=== PATIENT | male | born 1975 | race Caucasian/White ===

== ENCOUNTER 2023-10-11 13:01 | Observation (INO) ==
[2023-10-11 13:12] VITALS: BMI 23.6
--- NOTE | 2023-10-11 13:20 | DR.GENAD ---
HPI Time Seen Time Seen by Provider: 10/11/23 13:19 PCP Primary Care Physician: none Complaint/Symptoms Chief Complaint Doctors Comments: 48-year-old male brought in for evaluation. Has history of right inguinal hernia over the past year. Has had increasing pain and swelling of the area over the past several days. Denies any trauma. Usually the hernia goes down with laying down, has persisted to be swollen over the last several days. Pain is sharp, worse with movement and palpation. Makes it better. Denies associated nausea, vomiting, diarrhea. Moved his bowels recently no trouble. Denies any fever or chills. Chief Complaint:: Pt. states that he has had a right inguinal hernia for about a year. But this past week he has had increased pain and swelling to his right groin extending into his scrotom. He said that "it usually goes down" when he lays down but it hasn't "gone down this week". Pt. reports his last bowel movement was yesterday. Nurses notes reviewed Nurses Notes Review: Yes Source History Provided: Patient Mode of Arrival Mode of Arrival: Ambulatory Timing Onset of Chief Complaint: 10/08/23 PMH PMH Past Medical History: Yes Past Medical History: GERD Past Medical History Comment: hep C, inguinal hernia Past Surgical History: No Family History History of Family Medical Conditions: No Social History Does patient currently use any type of tobacco product: Yes Have you used tobacco products in the last 12 months: Yes Type of Tobacco Use: Cigarettes Alcohol Use: None Do you use any recreational Drugs:: No Lives With: Other Lives Where: [facility] screening In the last 2 months have you had wt loss of >10#?: NO Have you had fever, night sweats or hemotysis?: No Have you traveled outside the country in the last 6 months?: No Isolation: Standard ROS Review of Systems Constitutional: No Symptoms Reported Eyes: No Symptoms Reported ENTM: No Symptoms Reported Respiratoy: No Symptoms Reported Cardiovascular: No Symptoms Reported Gastrointestinal/Abdominal: See HPI Genitourinary: No Symptoms Reported Neurological: No Symptoms Reported Musculoskeletal: No Symptoms Reported Integumentary: No Symptoms Reported Hematologic/Lymphatic: No Symptoms Reported All Other Systems: Reviewed and Negative PE Vital Signs Vitals: Vital Signs Temperature 98.1 F Pulse Rate 65 Pulse Rate 60 Respiratory Rate 20 Respiratory Rate 17 Respiratory Rate 18 Blood Pressure 123/82 Blood Pressure 130/83 O2 Sat by Pulse Oximetry 99 O2 Sat by Pulse Oximetry 99 General General Appearance: Alert and In No Apparent Distress Eyes Eye exam: PERRL and EOMI ENT ENT Exam: Mucous Membranes Moist Neck Neck Exam: Normal Inspection Respiratory Respiratory Exam: Normal Lung Sounds Bilat; negative Accessory Muscle Use or Respiratory Distress Cardiovascular Cardiovascular Exam: Regular Rate, Normal Rhythm and Normal Heart Sounds Abdominal Exam Abdominal Exam: Soft and Tenderness (R inguinal region, with moderate hernia present. Unable to reduce easily. ) Neurologic Neurological Exam: Alert, Oriented X3 and CN II-XII Intact; negative Motor Sensory Deficit Skin Skin Exam: Warm and Dry COURSE Treatment Treatment: 48-year-old inmate presents with worsening hernia over the past several days. Baseline CT obtained, does have significant mount of intestines in his right inguinal hernia. Dr. García seeing the patient right now. Has not eaten since 5 AM. Anticipate going to OR. Labs, EKG, CXR obtained. given IV Ancef per Dr Lindquist's request. EKG and chest x-ray normal. To OR now. [facility]OR Labs Reviewed Laboratory Results Reviewed?: Yes 10/11/23 13:57 10/11/23 13:57 Laboratory: WBC 7.0 X10^3/uL (3.6-10.0) 10/11/23 13:57 RBC 4.43 X10^6/uL (4.7-6.0) L 10/11/23 13:57 Hgb 14.1 g/dL (13.5-18.0) 10/11/23 13:57 Hct 41.7 % (42.0-54.0) L 10/11/23 13:57 MCV 94.3 fL (80.0-100.0) 10/11/23 13:57 MCH 31.9 pg (27.0-34.0) 10/11/23 13:57 MCHC 33.9 g/dL (33.0-35.0) 10/11/23 13:57 RDW 14.0 % (11.6-16.5) 10/11/23 13:57 Plt Count 238 X10^3/uL (150.0-450.0) 10/11/23 13:57 MPV 8.3 fL (7.4-11.0) 10/11/23 13:57 Neut % (Auto) 58.1 % (42.0-75.0) 10/11/23 13:57 Lymph % (Auto) 27.5 % (21.0-51.0) 10/11/23 13:57 Hardeman % (Auto) 9.4 % (0.0-13.0) 10/11/23 13:57 Eos % (Auto) 4.6 % (0.9-2.9) H 10/11/23 13:57 Baso % (Auto) 0.4 % (0.2-1.0) 10/11/23 13:57 Neut # (Auto) 4.1 x10^3/uL (2.2-4.8) 10/11/23 13:57 Lymph # (Auto) 1.9 X10^3/uL (1.3-2.9) 10/11/23 13:57 Hardeman # (Auto) 0.7 x10^3/uL (0.3-0.8) 10/11/23 13:57 Eos # (Auto) 0.3 x10^3/uL (0.0-0.2) H 10/11/23 13:57 Baso # (Auto) 0.0 X10^3/uL (0.0-0.1) 10/11/23 13:57 Absolute Nucleated RBC 0.1 /100WBC 10/11/23 13:57 PT 13.6 SECONDS (11.8-14.3) 10/11/23 13:57 INR Target Range - 10/11/23 13:57 INR 1.06 (0.8-1.3) 10/11/23 13:57 APTT 31.3 SECONDS (22.9-36.5) 10/11/23 13:57 PTT Comment - 10/11/23 13:57 Sodium 140 mmol/L (136-145) 10/11/23 13:57 Corrected Sodium TNP 10/11/23 13:57 Potassium 4.0 mmol/L (3.5-5.1) 10/11/23 13:57 Chloride 103 mmol/L (98-107) 10/11/23 13:57 Carbon Dioxide 31.3 mmol/L (21-32) 10/11/23 13:57 BUN 7 mg/dL (7-18) 10/11/23 13:57 Creatinine 0.80 mg/dL (0.70-1.30) 10/11/23 13:57 Est GFR (MDRD) Af Amer > 60 (>60) 10/11/23 13:57 Est GFR (MDRD) Non-Af > 60 (>60) 10/11/23 13:57 Glucose 89 mg/dL (65-99) 10/11/23 13:57 Calcium 8.8 mg/dL (8.5-10.1) 10/11/23 13:57 Corrected Calcium TNP 10/11/23 13:57 Total Bilirubin 0.50 mg/dL (0.2-1.0) 10/11/23 13:57 AST 34 Units/L (15-37) 10/11/23 13:57 ALT 41 Units/L (12-78) 10/11/23 13:57 Alkaline Phosphatase 61 Units/L (46-116) 10/11/23 13:57 Total Protein 7.1 g/dL (6.4-8.2) 10/11/23 13:57 Albumin 3.4 g/dL (3.4-5.0) 10/11/23 13:57 Globulin 3.7 g/dL (2.5-4.5) 10/11/23 13:57 Albumin/Globulin Ratio 0.9 Ratio (1.1-2.1) L 10/11/23 13:57 Lipase 29 Units/L (16-77) 10/11/23 13:57 Labs acceptable. XRAY XRAY Interpreted by: Both X-ray Results: EXAM: ABDOMEN/PELVIS W/O CON HISTORY: Right inguinal hernia TECHNIQUE: Axial noncontrast images with coronal and sagittal reformats. Dose reduction procedures were used with mA/kv adjusted for body size. This examination is l imited due to the lack of intravenous and oral contrast. The examination was performed in this manner at the sole discretion of the ordering caregiver. COMPARISON: None FINDINGS: Lung bases are clear. The liver, spleen, adrenal glands, and pancreas are within normal limits to the limitations of an unenhanced examination. No opaque stones are present within the gallbladder. Kidneys are unobstructed and without stones. No ureteral calculi are identified. The appendix is normal. Abdominal aorta is normal in caliber. No intraperitoneal or retroperitoneal lymphadenopathy of significance is identified. There are no findings suggestive of enteritis, colitis, or diverticulitis. Examination of the pelvis demonstrated no evidence for pelvic masses, pelvic fluid, or pelvic lymphadenopathy. No bladder abnormality is identified. There is a very large 17 cm by 9.7 cm by 7 cm right inguinal hernia containing mesenteric fat and multiple loops of mildly dilated fluid-filled ileum. There is no evidence for small bowel obstruction proximal to the hernia however the mildly dilated fluid- filled loops within the hernia may be mildly obstructed. There are no findings suggestive of strangulation. Incarceration must be clinically evaluated. No lytic or blastic skeletal lesions of significance are identified. IMPRESSION: 17 cm x 9.7 cm x 7 cm right inguinal hernia containing mesenteric fat and several loops of minimally dilated air and fluid-filled ileum. No obstruction proximal to the hernia however loops within the hernia may be developing mild obstruction. No findings to suggest strangulation. Possibility of incarceration should be clinically evaluated. Surgical evaluation is recommended. THIS IS AN ELECTRONICALLY VERIFIED FINAL REPORT 10/11/2023 1:58 PM - Electronically signed by Kane Erickson MD Opioid Opioid Risk Tool Total: 0 Total Score Risk Category: Low Risk Copyright: Juan Miguel VELA predicting aberrant behaviors Discharge Plan Diagnosis Discharge Problem: Incarcerated right inguinal hernia Discharge Plan Patient Disposition: 09 ADMITTED INPATIENT Condition: Stable Prescriptions: No Action docusate sodium [Colace] 100 mg Capsule 100 mg PO BID fiber Tablet 1 tab PO DAILY Health Concerns: Post Hospitalization: new medications and changes needed to prevent readmission or further decline. Pt educated and given instructions on all concerns. Plan of Treatment: Continue with present treatment and follow up plan. Pt is to keep follow up appointment as instructed and take medications as ordered. Orders to Discharge Patient Discharge Orders: Transfer (Routine); Ordered 10/11/23 Ordered By: Eduard Castillo
[2023-10-11] MEDS ORDERED: LR 1,000 ML IV 1,000 ML IV ONE (13:50)
--- NOTE | 2023-10-11 14:01 | CT ---
EXAM:ABDOMEN/PELVIS W/O CONHISTORY:Right inguinal herniaTECHNIQUE:Axial noncontrast images with coronal and sagittal reformats. Dose reduction procedures were used with mA/kv adjusted for body size. This examination is limited due to the lack of intravenous and oral contrast. The examination was performed in this manner at the sole discretion of the ordering caregiver.COMPARISON:NoneFINDINGS:Lung bases are clear. The liver, spleen, adrenal glands, and pancreas are within normal limits to the limitations of an unenhanced examination. No opaque stones are present within the gallbladder. Kidneys are unobstructed and without stones. No ureteral calculi are identified. The appendix is normal. Abdominal aorta is normal in caliber. No intraperitoneal or retroperitoneal lymphadenopathy of significance is identified. There are no findings suggestive of enteritis, colitis, or diverticulitis. Examination of the pelvis demonstrated no evidence for pelvic masses, pelvic fluid, or pelvic lymphadenopathy. No bladder abnormality is identified. There is a very large 17 cm by 9.7 cm by 7 cm right inguinal hernia containing mesenteric fat and multiple loops of mildly dilated fluid-filled ileum. There is no evidence for small bowel obstruction proximal to the hernia however the mildly dilated fluid-filled loops within the hernia may be mildly obstructed. There are no findings suggestive of strangulation. Incarceration must be clinically evaluated. No lytic or blastic skeletal lesions of significance are identified.IMPRESSION:17 cm x 9.7 cm x 7 cm right inguinal hernia containing mesenteric fat and several loops of minimally dilated air and fluid-filled ileum. No obstruction proximal to the hernia however loops within the hernia may be developing mild obstruction. No findings to suggest strangulation. Possibility of incarceration should be clinically evaluated. Surgical evaluation is recommended.THIS IS AN ELECTRONICALLY VERIFIED FINAL REPORT10/11/2023 1:58 PM - Electronically signed by Kane Erickson MD
[2023-10-11 14:07] LABS: BASOPHILS % (AUTO) 0.4 % (0.2-1.0); EOSINOPHILS # (AUTO) 0.3 x10^3/uL (0.0-0.2); EOSINOPHILS % (AUTO) 4.6 % (0.9-2.9); HEMATOCRIT 41.7 % (42.0-54.0); HEMOGLOBIN 14.1 g/dL (13.5-18.0); LYMPHOCYTES # (AUTO) 1.9 X10^3/uL (1.3-2.9); LYMPHOCYTES % (AUTO) 27.5 % (21.0-51.0); MEAN CORPUSCULAR HEMOGLOBIN 31.9 pg (27.0-34.0); MEAN CORPUSCULAR HGB CONC 33.9 g/dL (33.0-35.0); MEAN CORPUSCULAR VOLUME 94.3 fL (80.0-100.0); MEAN PLATELET VOLUME 8.3 fL (7.4-11.0); MONOCYTES # (AUTO) 0.7 x10^3/uL (0.3-0.8); MONOCYTES % (AUTO) 9.4 % (0.0-13.0); NEUTROPHILS # (AUTO) 4.1 x10^3/uL (2.2-4.8); NEUTROPHILS % (AUTO) 58.1 % (42.0-75.0); PLATELET COUNT 238 X10^3/uL (150.0-450.0); RED BLOOD COUNT 4.43 X10^6/uL (4.7-6.0)
--- NOTE | 2023-10-11 14:13 | EKG ---
Test Reason : pre op Blood Pressure : */* mmHG Vent. Rate : 59 BPM Atrial Rate : 59 BPM P-R Int : 200 ms QRS Dur : 72 ms QT Int : 422 ms P-R-T Axes : 45 21 70 degrees QTc Int : 417 ms Sinus bradycardia Cannot rule out Anterior infarct , age undetermined Abnormal ECG No previous ECGs available Confirmed by Simeon Jordan ([id number]) on 10/12/2023 8:09:58 AM Referred By: Confirmed By: Simeon Jordan
[2023-10-11 14:15] LABS: INR 1.06 (0.8-1.3)
[2023-10-11] MEDS: ANCEF VIAL 1 GRAM ONE (14:19)
[2023-10-11 14:21] LABS: ALANINE AMINOTRANSFERASE 41 Units/L (12-78); ALBUMIN 3.4 g/dL (3.4-5.0); ALKALINE PHOSPHATASE 61 Units/L (46-116); ASPARTATE AMINO TRANSFERASE 34 Units/L (15-37); BLOOD UREA NITROGEN 7 mg/dL (7-18); CALCIUM 8.8 mg/dL (8.5-10.1); CARBON DIOXIDE 31.3 mmol/L (21-32); CHLORIDE 103 mmol/L (98-107); GLUCOSE 89 mg/dL (65-99); LIPASE 29 Units/L (16-77); SODIUM 140 mmol/L (136-145); TOTAL PROTEIN 7.1 g/dL (6.4-8.2); eGFR NON BLACK RACES > 60 (>60)
--- NOTE | 2023-10-11 14:24 | RAD ---
EXAM: CHEST, 1 VIEW HISTORY: PRE OP HERNIA; COMPARISON: None. TECHNIQUE: Portable chest FINDINGS: Heart size and mediastinal contours are normal. Lungs are clear as are the pleural spaces. No free ai r or pneumothorax. No acute bony abnormality. IMPRESSION: No acute radiographic abnormalities of the chest THIS IS AN ELECTRONICALLY VERIFIED FINAL REPORT 10/11/2023 2:14 PM - Electronically signed by Joel Mae MD
[2023-10-11] MEDS: LR 1,000 ML IV 1,000 ML IV SCH (14:25)
[2023-10-11] MEDS: BRIDION ONE (14:29)
[2023-10-11] MEDS ORDERED: SUPRANE ONE (14:29)
[2023-10-11] MEDS: ZEMURON 100 MG VIAL ONE (14:29)
[2023-10-11] MEDS: PEPCID 20 MG VIAL ONE (14:29)
[2023-10-11] MEDS: NS 100 ML IV 100 ML ONE (14:29)
[2023-10-11] MEDS: ZOFRAN INJ 4 MG VIAL ONE (14:29)
[2023-10-11] MEDS: ANCEF VIAL 1 GRAM IVP ONE (14:29)
[2023-10-11] MEDS: DIPRIVAN VIAL 20 ML ONE (14:29)
[2023-10-11] MEDS: VERSED ONE (14:29)
[2023-10-11] MEDS: TORADOL 30 MG VIAL ONE (14:29)
[2023-10-11] MEDS: FENTANYL VIAL INJ 100 mcg ONE ×2 (14:46→14:49)
[2023-10-11] MEDS: POLYMYXIN B SULFATE ONE (14:46)
[2023-10-11] MEDS: ROBINUL ONE (15:18)
[2023-10-11] MEDS: MARCAINE 0.5% ONE (15:32)
[2023-10-11] MEDS: DILAUDID INJ ONE (15:41)
[2023-10-11] MEDS: DILAUDID INJ IVP PRN ×2 (15:42→20:24)
[2023-10-11] MEDS ORDERED: REGLAN INJ 10 MG VIAL IVP PRN (15:46)
[2023-10-11] MEDS ORDERED: BARHEMSYS INJ IVP PRN (15:46)
[2023-10-11] MEDS ORDERED: BENADRYL INJ 50 MG VIAL IVP PRN (15:46)
[2023-10-11] MEDS ORDERED: ZOFRAN INJ 4 MG VIAL IVP PRN ×2 (15:46→15:56)
[2023-10-11] MEDS: ANCEF VIAL 1 GRAM 1 G in NS 100 ML IV 100 ML IV SCH (21:19)
[2023-10-11] MEDS ORDERED: ANCEF VIAL 1 GRAM IVP SCH (22:00)
[2023-10-12 06:12] VITALS: RESP 18
[2023-10-12] MEDS: PERCOCET TAB 5/325 MG PO ONE (09:12)
[2023-10-12 09:15] VITALS: BP 161/89; PULSE 67; TEMP 97.8; O2SAT 98
== END 2023-10-12 09:30 | disposition home or self-care (01) ==
LOC: ER 13:01 → INTOOBSV 15:59 → MED/SURG 15:59
PROVIDERS: ADMIT Surgery; ATTEND Surgery
DX: R93.1 Abnormal findings on diagnostic imaging of heart and coronary circulation; K21.9 Gastro-esophageal reflux disease without esophagitis; K40.31 Unilateral inguinal hernia, with obstruction, without gangrene, recurrent; Z72.0 Tobacco use; Z01.810 Encounter for preprocedural cardiovascular examination; B18.2 Chronic viral hepatitis C